=== PATIENT | male | born 1940 | race Caucasian/White ===

== ENCOUNTER 2021-04-19 00:51 | Inpatient (IN) | payer MEDICARE, BC ==
[~2021-04-19] VITALS: Ht 175.3 cm; Wt 69.0 kg
--- NOTE | 2021-04-19 00:58 | NUR ---
pt griselda from home for a copd exacerbation [id number], he has been in and out of hospitals, baseline 5L NC at home, found to be satting at 55%. 125 solumedrol enroute and 650 tylenol due to a fever enroute. pt increased respiratory rate and is satting low 90s and 15L NRB. reports fatigue, torres, chills and sob. ON ARRIVAL PT PLACED ON SPO2/BP/ECG MONITORING. BED IN LOWEST, RAILS ENGAGED, CALL LIGHT ON LAP, MEDICATED PER OCT, COVID SWAB OBTAINED AND WALKED TO LAB AT THIS TIME. WCTM.
[2021-04-19] MEDS ORDERED: SODIUM CHLORIDE 0.9% 1,000ML IVBOLUS ONE (01:00)
[2021-04-19] MEDS ORDERED: ALBUTEROL/IPRATROPIUM 2.5MG/0.5MG, 3 ML NPPB ONE ×2 (01:00→02:30)
[2021-04-19] MEDS ORDERED: SODIUM CHLORIDE FLUSH 10ML SYR IVF ONE (01:00)
[2021-04-19] MEDS ORDERED: ALBUTEROL/IPRATROPIUM 2.5MG/0.5MG, 3 ML ONE ×2 (01:01→02:56)
[2021-04-19 01:43] LABS: BASOPHILS % (AUTO) 1 % (0-1); EOSINOPHILS % (AUTO) 1 % (1-7); LYMPHOCYTES % (AUTO) 12 % (22-44); MEAN CORPUSCULAR HEMOGLOBIN 29.5 pg (27.5-34.5); MEAN CORPUSCULAR HGB CONC 33.4 g/dL (33.2-36.2); MEAN PLATELET VOLUME 7.6 fL (7.4-10.4); MONOCYTES % (AUTO) 2 % (2-9); NEUTROPHILS % (AUTO) 84 % (42-75); PLATELET COUNT 268 x10^3/uL (130-400); RED BLOOD COUNT 4.44 x10^6/uL (4.38-5.82); RED CELL DISTRIBUTION WIDTH 14.8 % (9.4-14.8)
[2021-04-19 01:52] LABS: ANION GAP 9 mmol/L (5-15); CALCIUM 8.1 mg/dL (8.5-10.1); CHLORIDE 107 mmol/L (98-107); CREATININE 1.07 mg/dL (0.7-1.3)
[2021-04-19 01:56] LABS: TROPONIN I < 0.015 ng/mL (0.000-0.045)
--- NOTE | 2021-04-19 01:56 | NUR ---
PT SWITCHED TO OPTIFLOW AT THIS TIME. PT APPEARS SLIGHTLY MORE COMFORTABLE. NAD, BED IN LOWEST, RAILS ENGAGED, CALL LIGHT ON LAP, WCTM. WAITING FOR RAD READ AND LAB RESULTS.
[2021-04-19] MEDS ORDERED: CEFTRIAXONE 1,000 MG in DEXTROSE 5% 50 ML IVPB ONE (02:00)
[2021-04-19] MEDS ORDERED: AZITHROMYCIN 500 MG in SODIUM CHLORIDE 0.9% 250 ML IV ONE (02:00)
[2021-04-19] MEDS ORDERED: ACETAMINOPHEN 325 MG TABLET PO PRN (03:30)
[2021-04-19] MEDS ORDERED: ACETAMINOPHEN 650 MG SUPP PR PRN (03:30)
[2021-04-19] MEDS ORDERED: methylPREDNISolone SOD SUCC 125 MG/2 ML IVPush ONE (03:30)
[2021-04-19] MEDS ORDERED: AZITHROMYCIN 500 MG TABLET PO ONE (03:30)
--- NOTE | 2021-04-19 03:38 | NUR ---
Patient is resting comfortably in bed. Bed in lowest, rails engaged, call light on lap. denies additional questions or needs at this time. mingo. SARAH.
[2021-04-19] MEDS ORDERED: ENOXAPARIN 40 MG/0.4 ML ONE (03:53)
[2021-04-19] MEDS: ENOXAPARIN 40 MG/0.4 ML SQ SCH (03:55)
[2021-04-19 05:10] VITALS: BP 109/66
[2021-04-19] MEDS: ALBUTEROL HFA 90 MCG/SPRAY INH SCH ×4 (07:00→20:18)
[2021-04-19] MEDS: AZITHROMYCIN 500 MG TABLET PO SCH (08:33)
[2021-04-19 08:40] VITALS: BP 108/70
[2021-04-19 13:51] VITALS: BP 101/63
[2021-04-19 18:52] VITALS: BP 103/63
[2021-04-20 01:20] VITALS: BP 108/65
[2021-04-20] MEDS: ENOXAPARIN 40 MG/0.4 ML SQ SCH (03:19)
[2021-04-20 06:02] LABS: CHLORIDE 109 mmol/L (98-107)
[2021-04-20 06:05] LABS: BASOPHILS % (AUTO) 1 % (0-1); EOSINOPHILS % (AUTO) 1 % (1-7); LYMPHOCYTES % (AUTO) 14 % (22-44); MEAN CORPUSCULAR HEMOGLOBIN 29.6 pg (27.5-34.5); MEAN CORPUSCULAR HGB CONC 33.9 g/dL (33.2-36.2); MEAN PLATELET VOLUME 7.4 fL (7.4-10.4); MONOCYTES % (AUTO) 3 % (2-9); NEUTROPHILS % (AUTO) 82 % (42-75); PLATELET COUNT 201 x10^3/uL (130-400); RED BLOOD COUNT 3.68 x10^6/uL (4.38-5.82); RED CELL DISTRIBUTION WIDTH 14.5 % (9.4-14.8)
[2021-04-20 06:09] LABS: ANION GAP 5 mmol/L (5-15); CALCIUM 8.1 mg/dL (8.5-10.1); CREATININE 0.98 mg/dL (0.7-1.3)
[2021-04-20] MEDS: ALBUTEROL HFA 90 MCG/SPRAY INH SCH ×4 (06:45→20:59)
[2021-04-20 08:13] VITALS: BP 104/59
[2021-04-20] MEDS: AZITHROMYCIN 500 MG TABLET PO SCH (09:09)
[2021-04-20 12:23] VITALS: BP 106/56
[2021-04-20] MEDS ORDERED: OMNIPAQUE 350 MG/ML, 75ML BOTTLE ONE (17:08)
[2021-04-20 19:06] VITALS: BP 124/75
[2021-04-21 00:35] VITALS: BP 102/65
[2021-04-21] MEDS: ALBUTEROL HFA 90 MCG/SPRAY INH SCH ×4 (05:42→20:32)
[2021-04-21] MEDS: ENOXAPARIN 40 MG/0.4 ML SQ SCH (05:42)
[2021-04-21] MEDS: AZITHROMYCIN 500 MG TABLET PO SCH (08:43)
[2021-04-21 08:53] VITALS: BP 115/62
[2021-04-21] MEDS: methylPREDNISolone SOD SUCC 125 MG/2 ML IVPush SCH ×2 (09:30→18:01)
[2021-04-21] MEDS ORDERED: FUROSEMIDE 40 MG/4 ML IV ONE (09:30)
[2021-04-21 13:48] VITALS: BP 98/59
[2021-04-21 16:17] VITALS: BP 107/67
[2021-04-21 18:56] VITALS: BP 102/64
[2021-04-22] MEDS: methylPREDNISolone SOD SUCC 125 MG/2 ML IVPush SCH ×3 (01:08→17:39)
[2021-04-22 01:27] VITALS: BP 112/69
[2021-04-22 04:30] LABS: BASOPHILS % (AUTO) 0 % (0-1); EOSINOPHILS % (AUTO) 0 % (1-7); LYMPHOCYTES % (AUTO) 17 % (22-44); MEAN CORPUSCULAR HEMOGLOBIN 29.3 pg (27.5-34.5); MEAN CORPUSCULAR HGB CONC 33.6 g/dL (33.2-36.2); MEAN PLATELET VOLUME 7.3 fL (7.4-10.4); MONOCYTES % (AUTO) 1 % (2-9); NEUTROPHILS % (AUTO) 82 % (42-75); PLATELET COUNT 245 x10^3/uL (130-400); RED BLOOD COUNT 4.17 x10^6/uL (4.38-5.82); RED CELL DISTRIBUTION WIDTH 14.3 % (9.4-14.8)
[2021-04-22 04:39] LABS: ANION GAP 7 mmol/L (5-15); CALCIUM 8.5 mg/dL (8.5-10.1); CHLORIDE 107 mmol/L (98-107); CREATININE 0.91 mg/dL (0.7-1.3)
[2021-04-22] MEDS: ENOXAPARIN 40 MG/0.4 ML SQ SCH (05:21)
[2021-04-22] MEDS: ALBUTEROL HFA 90 MCG/SPRAY INH SCH ×4 (05:21→21:10)
[2021-04-22 08:13] VITALS: BP 114/70
[2021-04-22] MEDS: AZITHROMYCIN 500 MG TABLET PO SCH (09:22)
[2021-04-22 15:20] VITALS: BP 101/60
[2021-04-22] MEDS: FUROSEMIDE 40 MG TABLET PO SCH (17:39)
[2021-04-22 20:00] VITALS: BP 135/76
[2021-04-23] MEDS: methylPREDNISolone SOD SUCC 125 MG/2 ML IVPush SCH ×3 (01:38→16:54)
[2021-04-23 03:00] VITALS: BP 111/64
[2021-04-23] MEDS: ENOXAPARIN 40 MG/0.4 ML SQ SCH (05:00)
[2021-04-23 05:32] LABS: ANION GAP 7 mmol/L (5-15); CALCIUM 8.2 mg/dL (8.5-10.1); CHLORIDE 107 mmol/L (98-107); CREATININE 0.96 mg/dL (0.7-1.3)
[2021-04-23] MEDS: ALBUTEROL HFA 90 MCG/SPRAY INH SCH ×4 (05:34→20:46)
[2021-04-23 06:59] VITALS: BP 105/60
[2021-04-23] MEDS ORDERED: ALBUTEROL HFA 90 MCG/SPRAY INH PRN (07:00)
[2021-04-23] MEDS: AZITHROMYCIN 500 MG TABLET PO SCH (08:24)
[2021-04-23] MEDS: FUROSEMIDE 40 MG TABLET PO SCH ×2 (08:25→16:55)
[2021-04-23 14:49] VITALS: BP 117/71
[2021-04-23] MEDS ORDERED: GUAIFENESIN 200 MG TABLET PO SCH (16:30)
[2021-04-23 19:42] VITALS: BP 117/70
[2021-04-23] MEDS: GUAIFENESIN 100 MG/5 ML, 10ML UDC PO SCH (20:46)
[2021-04-24 00:20] VITALS: BP 117/65
[2021-04-24] MEDS: methylPREDNISolone SOD SUCC 125 MG/2 ML IVPush SCH ×3 (01:19→16:58)
[2021-04-24] MEDS: GUAIFENESIN 100 MG/5 ML, 10ML UDC PO SCH ×4 (05:43→20:17)
[2021-04-24] MEDS: ALBUTEROL HFA 90 MCG/SPRAY INH SCH ×4 (05:43→20:18)
[2021-04-24] MEDS: ENOXAPARIN 40 MG/0.4 ML SQ SCH (05:43)
[2021-04-24 08:59] VITALS: BP 114/65
[2021-04-24] MEDS: FUROSEMIDE 40 MG TABLET PO SCH ×2 (09:01→16:08)
[2021-04-24 12:05] VITALS: BP 112/64
[2021-04-24 18:51] VITALS: BP 123/68
[2021-04-25 01:43] VITALS: BP 115/67
[2021-04-25] MEDS: methylPREDNISolone SOD SUCC 125 MG/2 ML IVPush SCH ×3 (01:46→16:20)
[2021-04-25] MEDS: GUAIFENESIN 100 MG/5 ML, 10ML UDC PO SCH ×3 (05:30→16:20)
[2021-04-25] MEDS: ENOXAPARIN 40 MG/0.4 ML SQ SCH (05:30)
[2021-04-25] MEDS: ALBUTEROL HFA 90 MCG/SPRAY INH SCH ×4 (05:30→20:48)
[2021-04-25 06:57] VITALS: BP 107/66
[2021-04-25] MEDS: FUROSEMIDE 40 MG TABLET PO SCH ×2 (08:45→16:20)
[2021-04-25 13:22] VITALS: BP 94/59
[2021-04-25 19:45] VITALS: BP 106/60
[2021-04-25] MEDS: GUAIFENESIN 200 MG TABLET PO SCH (21:08)
[2021-04-26] MEDS: methylPREDNISolone SOD SUCC 125 MG/2 ML IVPush SCH ×3 (01:00→17:21)
[2021-04-26 01:01] VITALS: BP 106/64
[2021-04-26 01:02] VITALS: BP 108/58
[2021-04-26] MEDS: GUAIFENESIN 200 MG TABLET PO SCH ×4 (06:05→21:40)
[2021-04-26] MEDS: ALBUTEROL HFA 90 MCG/SPRAY INH SCH ×4 (06:05→21:40)
[2021-04-26] MEDS: ENOXAPARIN 40 MG/0.4 ML SQ SCH (06:05)
[2021-04-26] MEDS: FUROSEMIDE 40 MG TABLET PO SCH (08:02)
[2021-04-26 08:09] VITALS: BP 117/71
[2021-04-26] MEDS: SALMETEROL INH 50MCG/INH DISK.W.DEV INH SCH ×2 (11:33→21:40)
[2021-04-26] MEDS: DOXYCYCLINE 100MG TABLET PO SCH ×2 (11:34→21:40)
[2021-04-26 11:44] LABS: ANION GAP 10 mmol/L (5-15); CALCIUM 8.6 mg/dL (8.5-10.1); CHLORIDE 97 mmol/L (98-107)
[2021-04-26 11:46] LABS: CREATININE 1.25 mg/dL (0.7-1.3)
[2021-04-26 12:58] VITALS: BP 108/58
[2021-04-26 18:30] VITALS: BP 108/64
[2021-04-27 02:00] VITALS: BP 111/72
[2021-04-27] MEDS: methylPREDNISolone SOD SUCC 125 MG/2 ML IVPush SCH ×3 (02:23→17:11)
[2021-04-27] MEDS: ALBUTEROL HFA 90 MCG/SPRAY INH SCH ×4 (05:22→22:22)
[2021-04-27] MEDS: GUAIFENESIN 200 MG TABLET PO SCH ×4 (05:22→22:20)
[2021-04-27] MEDS: ENOXAPARIN 40 MG/0.4 ML SQ SCH (05:22)
[2021-04-27 06:33] LABS: BASOPHILS % (AUTO) 0 % (0-1); EOSINOPHILS % (AUTO) 0 % (1-7); LYMPHOCYTES % (AUTO) 13 % (22-44); MEAN CORPUSCULAR HEMOGLOBIN 29.3 pg (27.5-34.5); MEAN CORPUSCULAR HGB CONC 33.5 g/dL (33.2-36.2); MEAN PLATELET VOLUME 7.2 fL (7.4-10.4); MONOCYTES % (AUTO) 2 % (2-9); NEUTROPHILS % (AUTO) 85 % (42-75); PLATELET COUNT 294 x10^3/uL (130-400); RED BLOOD COUNT 4.39 x10^6/uL (4.38-5.82); RED CELL DISTRIBUTION WIDTH 14.4 % (9.4-14.8)
[2021-04-27 06:45] LABS: ANION GAP 6 mmol/L (5-15); CALCIUM 8.1 mg/dL (8.5-10.1); CHLORIDE 102 mmol/L (98-107)
[2021-04-27 07:15] VITALS: BP 107/66
[2021-04-27] MEDS: SALMETEROL INH 50MCG/INH DISK.W.DEV INH SCH ×2 (09:41→22:21)
[2021-04-27] MEDS: DOXYCYCLINE 100MG TABLET PO SCH ×2 (09:41→22:20)
[2021-04-27 13:42] VITALS: BP 115/67
[2021-04-27 18:36] VITALS: BP 109/69
[2021-04-28 01:15] VITALS: BP 100/61
[2021-04-28] MEDS: methylPREDNISolone SOD SUCC 125 MG/2 ML IVPush SCH ×2 (01:38→08:05)
[2021-04-28] MEDS: ENOXAPARIN 40 MG/0.4 ML SQ SCH (06:24)
[2021-04-28] MEDS: GUAIFENESIN 200 MG TABLET PO SCH ×2 (06:25→11:39)
[2021-04-28] MEDS: ALBUTEROL HFA 90 MCG/SPRAY INH SCH ×2 (06:30→11:00)
[2021-04-28 07:24] VITALS: BP 104/65
[2021-04-28] MEDS: SALMETEROL INH 50MCG/INH DISK.W.DEV INH SCH (08:05)
[2021-04-28] MEDS: DOXYCYCLINE 100MG TABLET PO SCH (08:05)
[2021-04-28] MEDS ORDERED: GUAI200T37 PO (08:43)
[2021-04-28] MEDS ORDERED: ALBU18HF INH ×2 (08:43)
[2021-04-28] MEDS ORDERED: DOXY100T PO (08:43)
[2021-04-28] MEDS ORDERED: PRED10TA PO (08:43)
[2021-04-28] MEDS ORDERED: SALM50DI2 INH (08:43)
[2021-04-28] MEDS ORDERED: TIOT18CA INH (08:43)
[2021-04-28] MEDS ORDERED: FAMO40TA61 PO (08:44)
[2021-04-28 12:06] VITALS: BP 123/68
== END 2021-04-28 14:33 | disposition home health service (06) | DRG 871 ==
LOC: ED 03:29 → EDIP 03:54 → 4EST 04:38
PROVIDERS: ADMIT Internal Medicine; ATTEND Hospitalist
DX: A41.9 Sepsis, unspecified organism (principal); J96.21 Acute and chronic respiratory failure with hypoxia; J15.9 Unspecified bacterial pneumonia; J44.1 Chronic obstructive pulmonary disease with (acute) exacerbation; N17.9 Acute kidney failure, unspecified; I27.20 Pulmonary hypertension, unspecified; T50.1X5A Adverse effect of loop [high-ceiling] diuretics, initial encounter; Z20.822 Contact with and (suspected) exposure to COVID-19; Z87.891 Personal history of nicotine dependence
CPT/HCPCS: 36415; 36600; 71045; 71275; 80048; 82040; 82803; 83605; 83615; 84145; 84484; 85025; 85379; 87040; 87486; 87581; 87633; 87798; 93005; 93306; 94667; 96365; 99291; G0378; J0456; J0696; J1650; J1940; Q9967; U0005; J2930; J7030; J7050; J7512; U0003